=== PATIENT | female | born 1995 | race African-American/Black ===

== ENCOUNTER → 2020-07-11 | Outpatient (REF) | payer OTHER ==
[~2020-07-11] MED LIST: CYCL-707 PO; NAPR-837 PO
[2020-07-11 21:29] LABS: CHLAMYDIA DNA AMPLIFICATION NEGATIVE (NEGATIVE); GC DNA AMPLIFICATION NEGATIVE (NEGATIVE)
== END ==
LOC: M LAB 18:35
PROVIDERS: ATTEND Nurse Practitioner Family
DX: Z11.3 Encounter for screening for infections with a predominantly sexual mode of transmission (principal)

== ENCOUNTER 2020-08-23 14:20 | Emergency (ER) | payer OTHER ==
[~2020-08-23] VITALS: Ht 152.4 cm; Wt 57.8 kg
[2020-08-23 14:21] VITALS: BP 102/59
[2020-08-23] MEDS ORDERED: CYCL-707 PO (15:01)
[2020-08-23] MEDS ORDERED: NAPR-837 PO (15:01)
== END 2020-08-23 15:14 | disposition home or self-care (01) ==
LOC: M ED 14:20
DX: S33.5XXA Sprain of ligaments of lumbar spine, initial encounter (principal); V43.62XA Car passenger injured in collision with other type car in traffic accident, initial encounter; Y92.9 Unspecified place or not applicable; Y93.9 Activity, unspecified; Y99.9 Unspecified external cause status

== ENCOUNTER 2021-03-09 10:05 | Emergency (ER) | payer OTHER ==
[~2021-03-09] VITALS: Ht 152.4 cm; Wt 55.9 kg
[2021-03-09] MEDS ORDERED: ACETAMINOPHEN 325 MG TAB PO ONE (11:20)
[2021-03-09 11:46] VITALS: BP 108/76
== END 2021-03-09 12:32 | disposition home or self-care (01) ==
LOC: M ED 10:05
DX: Z11.52 Encounter for screening for COVID-19 (principal); R51.9 Headache, unspecified; R53.83 Other fatigue
CPT/HCPCS: 87804; 99284; U0003

== ENCOUNTER 2021-08-11 23:04 | Emergency (ER) | payer OTHER ==
[~2021-08-11] VITALS: Ht 152.4 cm; Wt 55.0 kg
[2021-08-11 23:04] VITALS: BP 106/66
[2021-08-11] MEDS ORDERED: MULTTAB20 PO (23:09)
[2021-08-11] MEDS ORDERED: PYRI50TA8 PO (23:09)
== END 2021-08-12 01:00 | disposition left against medical advice (07) ==
LOC: M ED 23:04
DX: Z53.21 Procedure and treatment not carried out due to patient leaving prior to being seen by health care provider (principal)

== ENCOUNTER 2021-11-13 01:09 | Emergency (ER) | payer OTHER ==
[~2021-11-13] VITALS: Ht 152.4 cm; Wt 57.9 kg
[~2021-11-13 01:09] MED LIST changes: +MULTTAB20 PO; +PYRI50TA8 PO
[2021-11-13] MEDS ORDERED: GUAI100L6 PO (01:18)
[2021-11-13] MEDS ORDERED: FLON1SPR NARES (08:15)
[2021-11-13] MEDS ORDERED: CETI-24 PO (08:15)
[2021-11-13 08:22] VITALS: BP 116/67
== END 2021-11-13 08:30 | disposition home or self-care (01) ==
LOC: M ED 01:09
DX: R05.9 Cough, unspecified (principal); R06.02 Shortness of breath